=== PATIENT | male | born 2005 | race Two or more races ===

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

== ENCOUNTER 2023-02-15 13:34 | Outpatient (CLI) | payer OTHER | END 2023-02-15 13:47 | disposition home or self-care (01) | LOC: RAD 13:34 | DX: Z01.818 Encounter for other preprocedural examination (principal) ==